=== PATIENT | male | born 1955 | race Caucasian/White ===

== ENCOUNTER → 2021-03-09 | Outpatient (CLI) | payer MEDICARE ==
[~2021-03-09] MED LIST: ADULT LOW DOSE81 MG PO; BRILINTA 90 MG90 MG PO; LIPITOR TAB 2020 MG PO; METOPROLOL TART25 MG PO; NITROSTAT0.4 MG SL; NORVASC 5 MG TAB5 MG PO; PRINIVIL10 MG PO; PRINIVIL20 MG PO; TYLENOL 325MG325 MG PO
== END ==
LOC: HEART 5 08:05
DX: I20.8 Other forms of angina pectoris (principal); I08.1 Rheumatic disorders of both mitral and tricuspid valves; I27.20 Pulmonary hypertension, unspecified
CPT/HCPCS: 78452; 93306; A9502; J2785